=== PATIENT | female | born 1940 | race Caucasian/White ===

== ENCOUNTER 2022-01-14 09:54 | Outpatient (CLI) | payer MEDICARE, BC, SELFPAY | END 2022-01-14 09:55 | disposition home or self-care (01) | LOC: INJ CL 09:55 | PROVIDERS: PCP Family Medicine; Visit Provider Family Medicine | DX: M54.16 Radiculopathy, lumbar region (principal); M51.36 Other intervertebral disc degeneration, lumbar region | CPT/HCPCS: 64483; J1100; Q9966 ==